=== PATIENT | female | born 1995 | race Caucasian/White ===

== ENCOUNTER 2017-08-16 15:32 | Inpatient (IN) | payer OTHER ==
[~2017-08-16] VITALS: Ht 152.4 cm; Wt 51.3 kg
[~2017-08-16 15:32] MED LIST: FERR27TA PO; PREN1TAB49 PO
[2017-08-16 16:30] VITALS: BP 116/72; PULSE 81; RESP 18; Ht 152.4 cm; Wt 51.3 kg
[2017-08-16] MEDS ORDERED: LIDOCAINE 1% (MPF) 30 ML INJ INJ PRN (16:30)
[2017-08-16] MEDS ORDERED: BUTORPHANOL 2 MG INJ IV PRN ×2 (16:30)
[2017-08-16] MEDS ORDERED: MISOPROSTOL 200 MCG TAB PR PRN ×2 (16:30→23:00)
[2017-08-16] MEDS ORDERED: OXYTOCIN 30 UNITS/LR 500 ML IV SCH ×2 (16:30)
[2017-08-16] MEDS ORDERED: CARBOPROST 250 MCG INJ IM PRN ×2 (16:30→23:00)
[2017-08-16] MEDS ORDERED: OXYTOCIN 30 UNITS/LR 500 ML IV PRN ×2 (16:30→23:00)
[2017-08-16] MEDS ORDERED: METHYLERGONOVINE 0.2 MG INJ IM PRN ×2 (16:30→23:00)
[2017-08-16] MEDS: LACTATED RINGER'S 1,000 ML IV SCH ×3 (17:08→19:20)
[2017-08-16] MEDS ORDERED: MINERAL OIL LIGHT 10 ML VIAL TOP ONE (17:30)
[2017-08-16] MEDS: LACTATED RINGER'S 1,000 ML IV PRN ×2 (17:59→18:42)
[2017-08-16] MEDS ORDERED: FENTAnyl 2MCG/ML-ROPIV 0.2% 100 ML ONE (18:17)
[2017-08-16] MEDS ORDERED: FENTAnyl 2MCG/ML-ROPIV 0.2% 100 ML BAG EPI SCH (19:00)
[2017-08-16] MEDS ORDERED: NALOXONE (0.4 MG/ML) INJ IV PRN (19:00)
--- NOTE | 2017-08-16 19:19 | RADRPT ---
PROCEDURE: Obstetrical ultrasound CLINICAL INDICATION: presentation and verification of augmentation clearance TECHNIQUE: Multiple sonographic images of the pelvis were obtained. The images were reviewed on a PACS workstation. COMPARISON: None FINDINGS: The cervix is not well visualized. There is a single viable intrauterine gestation. Cardiac activity is present with 144 beats per minute. There is a vertex presentation. The placenta is posterior and fundal in location. There is no evidence for an abruption or placenta previa. There is a subjectively normal amount of amniotic fluid. Measurements were made in order to determine age. The results are as follows (cm): BPD =8.91 HC =32.08 AC =32.51 FL =7.04 Estimated gestational age by ultrasound of approximately 36 weeks, 1 day. The estimated date of delivery by ultrasound is 09/12/2017. Estimated gestational age by LMP of approximately 38 weeks, 3 days. The estimated date of delivery by LMP is 08/27/2017. EFW = 2893 grams (50th percentile) IMPRESSION: Single viable intrauterine gestation of approximately 36 weeks, 1 day . The estimated date of delivery is 09/12/2017 . Dating by ultrasound is within 16 days of dating by LMP. Cephalic presentation. Estimated weight is in the 50th percentile. RPTAT: EE Physician Shaye Date Time Electronically viewed and signed by Physician Shaye on 08/16/2017 19:19 /
--- NOTE | 2017-08-16 19:57 | HP ---
Date/Time of Note Date/Time of Note DATE: 08/16/17 TIME: 19:53 OB - History Hx of Present Chief Complaint: contrtactions Estimated Due Date: Aug 27, 2017 : 3 Para: 1 Spontaneous : 0 Therapeutic : 1 Care: Good Care Ultrasounds: Normal mid trimester US Obstetrical Complications: None Medical Complications: None Past Family/Social History * Past Medical, Surgical, Family and Obstetric Histories reviewed from chart. GBS Status: Negative OB Admission Exam Vital Signs Vital Signs Vital Signs Date Time Temp Pulse Resp B/P Pulse Ox O2 Delivery O2 Flow Rate FiO2 08/16/17 16:30 98.0 81 18 116/72 98 Room Air Physical Exam HEENT: WNL Heart: Rhythm Normal Lungs: Clear, Equal Abdomen: WNL Extremities: Normal Reflexes: Normal Cervical Dilatation: 4cm Effacement: 75% Station: -2 Membranes: Intact Heart Rate: 130's Accelerations: Accelerations Present Decelerations: No Decelerations Varibility: Moderate Last 72 hours Lab Results CBC & BMP 08/16/17 17:08 OB Assessment/Plan Reason for admission: active labor Plan: Expectant Management MARIANA FLOWER MD Aug 16, 2017 19:57
--- NOTE | 2017-08-16 20:42 | LDN ---
Date/Time of Note Date/Time of Note DATE: 08/16/17 TIME: 20:40 Delivery Summary Weeks of Gestation 38 weeks Placenta Delivered: Spontaneously Meconium: none Episiotomy: No Perineal laceration: 1 Laceration repair: Second degree laceration repaired with 3-0 Vicryl. Anesthesia type: Epidural Estimated blood loss: 200 Sponge & Needle done & correct: Yes All needle counts correct: Yes Any foreign bodies felt in the: No Problems: Infant Delivery Information Sex Sex: female Apgars 1 Minute: 9 5 Minute: 9 Suctioning Nose & mouth suctioned at [place]: Yes Delee suction performed: No Umbilical Cord Umbilical cord with: 3 Vessels Cord presentations: no nuchal cord Cord Blood was obtained: Yes Mother & Baby Disposition Disposition Mom & Baby to Maternity; Good: Yes MARIANA FLOWER MD Aug 16, 2017 20:42
[2017-08-16 22:15] VITALS: BP 114/60; PULSE 86; RESP 18
[2017-08-16] MEDS: LACTATED RINGER'S 1,000 ML IV* SCH (22:39)
[2017-08-16] MEDS ORDERED: DIBUCAINE 1% 30 GM OINT PR PRN (23:00)
[2017-08-16] MEDS ORDERED: WITCH HAZEL/GLYCERIN PAD PR PRN (23:00)
[2017-08-16] MEDS ORDERED: ACETAMINOPHEN 325 MG TAB PO PRN (23:00)
[2017-08-16] MEDS ORDERED: HYDROCODONE/APAP (5/325) TAB PO PRN (23:00)
[2017-08-16] MEDS ORDERED: BENZOCAINE 20% 56 ML SPRAY TOP PRN (23:00)
[2017-08-16] MEDS: IBUPROFEN 600 MG TAB PO SCH (23:52)
[2017-08-17] VITALS: BP 119/71; PULSE 96; RESP 18
[2017-08-17] MEDS: LACTATED RINGER'S 1,000 ML IV* SCH ×3 (02:55→22:39)
[2017-08-17 04:15] VITALS: BP 118/64; PULSE 90
[2017-08-17] MEDS: IBUPROFEN 600 MG TAB PO SCH ×4 (05:31→23:32)
[2017-08-17 07:45] VITALS: BP 112/67; PULSE 68; RESP 20
[2017-08-17] MEDS: SENNA/DOCUSATE NA (8.6MG/50MG) TAB PO SCH ×2 (08:48→21:45)
--- NOTE | 2017-08-17 13:16 | DS ---
Date/Time of Note Date/Time of Note DATE: 08/17/17 TIME: 13:16 Obstetrical Discharge Record Final Diagnosis Final Diagnosis: Term delivered Vaginal Delivery Obstetrical Delivery: Spontaneous Condition on Discharge Physical Assessment Voiding: Yes Bowel Movement: Yes Breast: Soft, non-tender, Filling Fundus: Firm Calf Tenderness: No Patient Condition: Stable MARIANA FLOWER MD Aug 17, 2017 13:16
[2017-08-17 16:00] VITALS: BP 110/78; PULSE 75; RESP 18
[2017-08-17 20:00] VITALS: BP 120/73; PULSE 74; RESP 18
[2017-08-18 04:00] VITALS: BP 116/72; PULSE 68; RESP 18
[2017-08-18] MEDS: IBUPROFEN 600 MG TAB PO SCH ×2 (05:34→12:27)
[2017-08-18] MEDS ORDERED: DIPHTH/TET/ACEL PERTUSS (ADULT) 0.5 ML VIAL IM* ONE (09:00)
[2017-08-18] MEDS: SENNA/DOCUSATE NA (8.6MG/50MG) TAB PO SCH (09:00)
== END 2017-08-18 15:25 | disposition home or self-care (01) | DRG 775 ==
LOC: OBT 15:32 → L-D 15:34 → OBT 16:20 → L-D 16:20 → PP1 22:16
PROVIDERS: ADMIT Obstetrics & Gynecology; ATTEND Obstetrics & Gynecology
PROC: 10E0XZZ Delivery of Products of Conception, External Approach (ICD-10-PCS; principal; 2017-08-16)
PROC: 0KQM0ZZ Repair Perineum Muscle, Open Approach (ICD-10-PCS; 2017-08-16)
PROC: 3E0P3VZ Introduction of Hormone into Female Reproductive, Percutaneous Approach (ICD-10-PCS; 2017-08-16)
DX: O70.1 Second degree perineal laceration during delivery (principal); Z37.0 Single live birth; Z3A.38 38 weeks gestation of pregnancy
CPT/HCPCS: 62319; 76815; 85025; 85610; 85730; 86592; 86900; 86901; 87340; 90715; 99464; G0463; J2590; J3010; J7120